=== PATIENT | male | born 1995 | race Caucasian/White ===

== ENCOUNTER 2019-06-11 21:14 | Emergency (ER) | payer BC ==
[2019-06-11] MEDS ORDERED: Tenofovir/Emtricitab 200/300 * TAB PO ONE (22:58)
[2019-06-11] MEDS ORDERED: Raltegravir* 400 MG TAB PO ONE (22:58)
--- NOTE | 2019-06-11 22:58 | ED ---
GI/ HPI - HPI Summary HPI Summary: This pt is a 24 Y/O M presenting to [facility] with a CC of potential HIV exposure following multiple male partners in an unsafe setting without the use of a condom. He states that he partook in anal intercourse during this episode but states that he only penetrated during the event. He states that this took place on 06/09/2019. He currently denies any dysuria, hematuria, penile discharge, fevers, chills, skin deformities, or N/V. He states that he has never had an STD in the past and wants to take medications as a precaution. He has no aggravating or alleviating factors. He has no pertinent PMHx. - History of Current Complaint Chief Complaint: EDExposureBodyFluid Time Seen by Provider: 06/11/19 22:40 Stated Complaint: BLOOD TEST PER PT Hx Obtained From: Patient Onset/Duration: Started Days Ago - 2, Still Present Timing: Constant Current Severity: None Pain Intensity: 0 Location of Pain: None Associated Signs and Symptoms: Positive: Negative - skin deformitites, New Sexual Partner. Negative: Nausea, Vomiting, Discharge, Fever, Hematuria, Dysuria, Chills Additional Signs & Symptoms: Negative: Penile Discharge Aggravating Factor(s): Nothing Alleviating Factor(s): Nothing - Allergy/Home Medications Allergies/Adverse Reactions: Allergies Allergy/AdvReac Type Severity Reaction Status Date / Time No Known Allergies Allergy Verified 06/11/19 22:34 Home Medications: Home Medications NK [No Home Medications Reported] 06/11/19 [History Confirmed 06/11/19] PMH/Surg Hx/FS Hx/Imm Hx Previously Healthy: Yes Endocrine/Hematology History: Denies: Hx Diabetes Cardiovascular History: Reports: Hx Hypercholesterolemia Respiratory History: Denies: Hx Asthma Sensory History: Reports: Hx Contacts or Glasses Opthamlomology History: Reports: Hx Contacts or Glasses - Cancer History Hx Chemotherapy: No Hx Radiation Therapy: No - Surgical History Surgical History: Yes Surgery Procedure, Year, and Place: spinal abifida - Immunization History Immunizations Up to Date: Yes Infectious Disease History: No Infectious Disease History: Reports: Traveled Outside the [place] in Last 30 Days - Family History Known Family History: Positive: Hypertension, Other - high cholesterol - Social History Occupation: Student - [place] Lives: Dormitory/Roommates Alcohol Use: Weekly Alcohol Amount: drinks alot on occasion Hx Substance Use: Yes Substance Use Type: Reports: Marijuana Hx Tobacco Use: Yes Smoking Status (MU): Current Some Day Smoker Review of Systems Negative: Fever, Chills Negative: Vomiting, Nausea Genitourinary: Negative - penile discharge Positive: dysuria, hematuria Skin: Negative - deformitites All Other Systems Reviewed And Are Negative: Yes Physical Exam - Summary Physical Exam Summary: Constitutional: Well-developed, Well-nourished, Alert. (-) Distressed Skin: Warm, Dry HENT: Normocephalic; Atraumatic Eyes: Conjunctiva normal Neck: Musculoskeletal ROM normal neck. (-) JVD, (-) Stridor, (-) Tracheal deviation Cardio: Rhythm regular, rate normal, Heart sounds normal; Intact distal pulses; The pedal pulses are 2+ and symmetric. Radial pulses are 2+ and symmetric. Pulmonary/Chest wall: Effort normal. (-) Respiratory distress, (-) Wheezes, (-) Rales Abd: Soft, (-) tenderness, (-) Distension, (-) Guarding, (-) Rebound Musculoskeletal: (-) Edema Neuro: Alert, Oriented x3 Psych: Mood and affect Normal Triage Information Reviewed: Yes Vital Signs On Initial Exam: Initial Vitals Temp Pulse Resp BP Pulse Ox 97.7 F 88 15 159/105 100 06/11/19 21:19 06/11/19 21:19 06/11/19 21:19 06/11/19 21:19 06/11/19 21:19 Vital Signs Reviewed: Yes Procedures - Sedation Patient Received Moderate/Deep Sedation with Procedure: No Diagnostics - Vital Signs Vital Signs Temp Pulse Resp BP Pulse Ox 06/11/19 22:35 89 18 148/79 97 06/11/19 21:19 97.7 F 88 15 159/105 100 - Laboratory Lab Statement: Any lab studies that have been ordered have been reviewed, and results considered in the medical decision making process. Re-Evaluation - Re-Evaluation First Eval Re-Evaluation Time: 00:04 Change: Improved Comment: Pt states that he is asymptomatic and denied a exam. States he is here for preemptive messures. GIGU Course/Dx - Course Course Of Treatment: This pt is a 24 Y/O M presenting to [facility] with a CC of potential HIV exposure following multiple male partners in an unsafe setting without the use of a condom. He states that he partook in anal intercourse during this episode but states that he only penetrated during the event. His PE found no acute abnormalitites. All other abnormal lab results are not pertinent to current cc. He was given his antibiotics in house and provided with a 7 day supply of antivirals. He will be discharged home due to his asymptomatic nature and instructed to follow up with infectious disease. - Diagnoses Provider Diagnoses: Patient exposure to body fluids Discharge ED - Sign-Out/Discharge Documenting (check all that apply): Patient Departure - discharge - Discharge Plan Condition: Good Disposition: HOME Patient Education Materials: Postexposure Prophylaxis (ED) Referrals: Jesús VERA,Fortino Carrillo [Medical Doctor] - Additional Instructions: Please follow up with Dr. Espinosa, infectious disease, in one week following the end of your medication treatment for further examination and possible treatments. Return to the Emergency Department for any new or worsening symptoms. Please take all medications prescribed to you as directed and for the intended time. - Billing Disposition and Condition Condition: GOOD Disposition: Home - Attestation Statements Document Initiated by Angela: Yes Documenting Scribe: Christian Suggs Provider For Whom Angela is Documenting (Include Credential): Scotty Bronson MD Scribe Attestation: Christian Bartlett scribed for Scotty Bronson MD on 06/12/19 at 0440. Scribe Documentation Reviewed: Yes Provider Attestation: The documentation as recorded by the Christian burnham accurately reflects the service I personally performed and the decisions made by me, Scotty Bronson MD Status of Scribe Document: Viewed
[2019-06-11] MEDS ORDERED: cefTRIAXone VIAL(*) 500 MG VIAL IM ONE (23:01)
[2019-06-11] MEDS ORDERED: Lidocaine 1% MPF ** 5 ML VIAL IM ONE (23:01)
[2019-06-11] MEDS ORDERED: Azithromycin TAB* 250 MG PO ONE (23:01)
[2019-06-11] MEDS ORDERED: Penicillin G Benzathine 2.4MU* 2,400,000 UNITS/4 ML SYR IM ONE (23:02)
[2019-06-11] MEDS ORDERED: cefTRIAXone VIAL(*) 1,000 MG VIAL IM ONE (23:45)
[2019-06-12 00:17] LABS: HIV 4th Generation Nonreactive (Nonreactive)
[2019-06-12 00:31] LABS: Hepatitis B Surface Antigen Nonreactive (Nonreactive)
[2019-06-12 00:37] VITALS: BP 140/80
[2019-06-12 00:48] LABS: Hepatitis B Surface Ab Not Immune (Immune); Hepatitis C Antibody Negative (Negative)
== END 2019-06-12 00:37 | disposition home or self-care (01) ==
LOC: ED 21:14
DX: Z77.21 Contact with and (suspected) exposure to potentially hazardous body fluids (principal); Z72.0 Tobacco use
CPT/HCPCS: 36415; 86706; 86780; 86803; 87340; 87389; 96372; 99283; A9270-GY; J0561; J0696